=== PATIENT | female | born 1985 | race Caucasian/White ===

== ENCOUNTER 2023-05-19 11:35 | Inpatient (IN) | payer BC, SELFPAY ==
[2023-05-19] VITALS (28 sets, daily range): BP systolic 112–167; BP diastolic 59–102; PULSE 84–120; TEMP 35.9–37.1; O2SAT 98–100; BMI 31.8
[2023-05-19] MEDS: Lactated Ringers 1,000 ML 50 ML IV (12:45)
[2023-05-19] MEDS: Oxytocin 15 Units/NS 250ml 15 UNITS/250 ML IV.SOLN 2 UNITS IV (12:51)
[2023-05-19] MEDS: 0.9% Normal Saline Single 100 ML IV.SOLN. INTRA-UTER (13:06)
[2023-05-19 13:09] LABS: Absolute Lymphocyte Count 1.45 X10^3/uL (0.83-4.51); Absolute Neutrophil Count 8.8 X10^3/uL (2.0-7.7); Basophil# 0.06 X10^3/uL; Basophil% 0.5 % (0-1); Eosinophil# 0.13 X10^3/uL; Eosinophils% 1.1 % (0-5); Hematocrit 38.8 % (37-47); Hemoglobin 13.2 g/dL (12.0-15.0); Lymphocyte # 1.45 X10^3/ul (0.83-4.51); Lymphocyte % 12.8 % (19-41); Mean Corpuscular Hgb 29.6 pg (27.0-32.0); Mean Platelet Vol. 10.3 fl (6.2-12.0); Monocyte# 0.77 X10^3/uL; Monocyte% 6.8 % (0-10); NRBC Flagged by Analyzer 0 % (0-5); Neutrophil # 8.82 X10^3/uL (2.7-7.7); Neutrophil % 77.8 % (47-70); Platelet Count 205 K/mm3 (150-450); RBC Distribution Width CV 12.2 % (11.6-14.6); RBC Distribution Width SD 38.3 fl (35.1-43.9); Red Blood Count 4.46 M/mm3 (4.2-5.4); White Blood Count 11.3 K/mm3 (4.4-11.0)
--- NOTE | 2023-05-19 13:10 | HP.PCM.OB_ITS ---
HPI - General General Date of Admission: 05/19/23 Date of Service: 05/19/23 HPI Narrative AUGUSTA CAMPOS, is a 38 F who presents for induction. In the office she reported decreased FM. Maternal Data Information Final VERONICA: 05/25/23 Gestational age: 39&1 PFSH PFSH Medical History Advanced maternal age (AMA) in Fibroids Home Medications vits,calcium no.78-iron fumarate-folic acid 29 mg-1 mg tablet (Prenatabs FA) 1 tab PO DAILY 07/01/17 [History Last Taken 05/18/23] ibuprofen 400 mg tablet 800 mg (2 x 400 mg) PO Q8H PRN PRN Pain ##30 07/07/17 [R x Last Taken Unknown] Allergy/AdvReac Type Severity Reaction Status Date / Time Sulfa (Sulfonamide Allergy Rash Verified 07/04/17 22:09 Antibiotics) ascorbic acid Allergy Mild Itching Uncoded 05/19/23 12:01 Social History Smoking Status: Never smoker History 3 Elective abortions Hx Para 2 Spontaneous abortions Hx # Term Pregnancies Ectopic pregnancies Hx # Pregnancies Multiple births # of living children 2 NST FHR Rate Baby A Baseline: 150 Variability:: Moderate Accelerations:: 15 x 15 Decelerations:: None Uterine Activity:: Q2-3 min Vital Signs Vital Signs Vital Signs: 05/19/23 11:57 05/19/23 11:57 05/19/23 11:58 Pulse Rate 117 H Blood Pressure 167/102 H BP Systolic 167 BP Diastolic 102 Pulse Ox 98 05/19/23 11:58 05/19/23 12:00 05/19/23 12:00 Pulse Rate 120 H 109 H Blood Pressure 145/90 H BP Systolic 145 BP Diastolic 90 Pulse Ox 05/19/23 12:02 05/19/23 12:02 Pulse Rate 112 H Blood Pressure BP Systolic BP Diastolic Pulse Ox 100 Weight Weight: 203 lb 8.614 oz Body Mass Index (BMI) 31.8 Physical Exam Const alert, oriented x3 and no apparent distress Chest inspection of chest normal GI soft to palpation, non-tender and non-distended Inspection: gravid external exam normal Narrative: cvx - 1/20/-3, intracervical conway placed Labs Labs Labs: Blood Type O POSITIVE Antibody Screen NEGATIVE Hct 38.8 % (37-47) Hgb 13.2 g/dL (12.0-15.0) Syphilis Total Ab Pending Rhogam given: No see [facility] H&P Assessment & Plan (1) Advanced maternal age (AMA) in : COMMENT: @ 39&1 (2) Decreased movement: QUALIFIERS: Fetus number: single or unspecified fetus Trimester: third trimester Qualified Code(s): O36.8130 - Decreased movements, third trimester, not applicable or unspecified (3) Amniotic fluid index borderline low: PLAN: Plan Admit to L&D Induction of labor - on pitocin & intracervical conway placed GBS negative Pain - declines epidural at this time EFW - less than 4500g, patient with adequate pelvis
[2023-05-19 14:01] LABS: Syphilis Antibodies Non-reactive
--- NOTE | 2023-05-19 20:59 | PCM.PN.OB ---
Subjective Subjective Patient feeling more ctxs Objective Data Objective Data Vital Signs: Vital Signs Temp Pulse BP Pulse Ox 98.8 F 101 H 135/85 H 98 05/19/23 19:30 05/19/23 20:55 05/19/23 20:55 05/19/23 20:55 Weight: 203 lb 8.614 oz Body Mass Index (BMI) 31.8 Intake & Output: Intake and Output for Last 24 Hours 05/17/23 05/18/23 05/19/23 23:59 23:59 23:59 Intake Total 24.17 / 24.17 Balance 24.17 / 24.17 Lab / Micro Data 05/19/23 12:45 Labs: Laboratory Results - last 24 hr 05/19/23 12:45: WBC 11.3 H, RBC 4.46, Hgb 13.2, Hct 38.8, MCV 87.0, MCH 29.6, MCHC 34.0, RDW Std Deviation 38.3, RDW Coeff of Alissa 12.2, Plt Count 205, MPV 10.3, Immature Gran % (Auto) 1.000 H, Neut % (Auto) 77.8 H, Lymph % (Auto) 12.8 L, [place] % (Auto) 6.8, Eos % (Auto) 1.1, Baso % (Auto) 0.5, Absolute Neuts (auto) 8.8 H, Absolute Lymphs (auto) 1.45, Nucleated RBC % 0, Syphilis Total Ab Non-reactive, Blood Type O POSITIVE, Antibody Screen NEGATIVE Physical Exam Const alert, oriented x3 and no apparent distress Narrative: cvx - 4.5/80/-2 NST FHR Rate Baby A Baseline: 135 Variability:: Moderate Accelerations:: 15 x 15 Decelerations:: Variable Uterine Activity:: Q 2-3 minutes Assessment & Plan (1) Advanced maternal age (AMA) in : COMMENT: @ 39&1 PLAN: Plan AROM thin meconium fluid Continue pitocin induction
[2023-05-19] MEDS: LACTATED RINGERS 500 ML 999 ML IV (22:25)
[2023-05-19] MEDS: Lidocaine 1% (20 ml mdv) 20 ML Vial INFILT (22:52)
[2023-05-19] MEDS: Ketorolac 30 MG/ML Syringe IV (22:56)
--- NOTE | 2023-05-19 23:14 | EX.PCM.OBRPT ---
Maternal Data Information Final VERONICA: 05/25/23 Gestational age: 39&1 Vaginal Delivery Maternal Presentation Maternal Presentation: Medically Indicated Induction Type of Induction: Pitocin, [place] Bulb and Amniotomy Operative Information Date of Procedure: 05/19/23 Pre-Operative Diagnosis: (1) Advanced maternal age (2) Decreased movement Post-Operative Diagnosis: Same Surgery / Procedure Performed: Spontaneous Vaginal Delivery Type of Anesthesia: Local with 1% Lidocaine Estimated Blood Loss: 400ml Findings Description of Procedure: Patient draped when C/C/+2. She pushed well to deliver the head. head gently guided to allow delivery of anterior and posterior shoulders. No excess traction placed on head. Body delivered and 3VC clamped & cut in delayed fashion. Placenta delivered with gentle traction and good uterine tone obtained. Presentation: SPENSER Amniotic Membrane Rupture Type: Artificial Amniotic Fluid Description: Lightly stained meconium Placental Delivery Description: Expressed Placenta Disposition: [facility] Specimen(s) Removed: Placenta Cord Vessel Description: 3 Vessels Cord Entanglement: Around neck x 1, loose Nuchal Cord Compression: Without compression A Gender: Female (1 minute): 8 (5 minute): 10 Delayed Cord Clamping: Yes Post Vaginal Delivery Medications Given After Delivery: IV Pitocin and IM Pitocin Episiotomy Description: None Laceration: 1st degree (vaginal - repaired with 3-0 vicryl) Complication Complications: None
[2023-05-19] MEDS: Oxytocin 15 Units/NS 250ml 15 UNITS/250 ML IV.SOLN 83 UNITS IV (23:23)
[2023-05-20] VITALS (16 sets, daily range): BP systolic 100–118; BP diastolic 56–80; PULSE 77–111; RESP 15–16; TEMP 36.6–37.2; O2SAT 97–100
[2023-05-20] MEDS: Acetaminophen 500 MG Tablet 1000 MG PO ×4 (00:15→20:33)
[2023-05-20] MEDS: 0.9% Saline Lock 10 ML Syringe IV (02:23)
[2023-05-20] MEDS: Ibuprofen 600 MG Tablet PO ×4 (02:23→22:40)
--- NOTE | 2023-05-20 06:34 | PN.OBGYN_ITS ---
Subjective Subjective Denies complaints Objective Data Objective Data Vital Signs: Vital Signs Temp Pulse Resp BP Pulse Ox O2 Del Method 98 F 92 16 102/66 97 Room Air 05/20/23 04:30 05/20/23 04:30 05/20/23 04:30 05/20/23 04:30 05/20/23 04:30 05/20/23 04:30 Oxygen Delivery Method Room Air Weight: 203 lb 8.614 oz Body Mass Index (BMI) 31.8 Intake & Output: Intake and Output for Last 24 Hours 05/18/23 05/19/23 05/20/23 23:59 23:59 23:59 Intake Total 944.10 / 944.10 250 / 250 Output Total 400 / 400 700 / 700 Balance 544.10 / 544.10 -450 / -450 Lab / Micro Data 05/19/23 12:45 Labs: Laboratory Results - last 24 hr 05/19/23 12:45: WBC 11.3 H, RBC 4.46, Hgb 13.2, Hct 38.8, MCV 87.0, MCH 29.6, MCHC 34.0, RDW Std Deviation 38.3, RDW Coeff of Alissa 12.2, Plt Count 205, MPV 10.3, Immature Gran % (Auto) 1.000 H, Neut % (Auto) 77.8 H, Lymph % (Auto) 12.8 L, [place] % (Auto) 6.8, Eos % (Auto) 1.1, Baso % (Auto) 0.5, Absolute Neuts (auto) 8.8 H, Absolute Lymphs (auto) 1.45, Nucleated RBC % 0, Syphilis Total Ab Non- reactive, Blood Type O POSITIVE, Antibody Screen NEGATIVE Physical Exam Const alert, oriented x3 and no apparent distress HEENT normocephalic GI soft to palpation, non-tender and non-distended GI Narrative: fundus firm, mid & below umbilicus Extremity normal to inspection and no calf tenderness Assessment & Plan (1) Vaginal delivery: COMMENT: PPD#1 PLAN: Plan Routine care
[2023-05-20] MEDS: Senna/Docusate Sodium 1 Tablet PO (08:28)
[2023-05-21 01:18] VITALS: BP 109/67; PULSE 83; RESP 15; TEMP 36.2; O2SAT 96
[2023-05-21] MEDS: Acetaminophen 500 MG Tablet 1000 MG PO (02:22)
--- NOTE | 2023-05-21 07:38 | PCM.PN.OB ---
Subjective Subjective Patient seen at bedside. Ambulating and voiding without difficulty. Denies headache, dizziness, CP, or SOB. Lochia decreasing. with minimal support. Desires discharge home today. Objective Data Objective Data Vital Signs: Vital Signs Temp Pulse Resp BP Pulse Ox O2 Del Method 97.1 F L 83 15 109/67 96 Room Air 05/21/23 01:18 05/21/23 01:18 05/21/23 01:18 05/21/23 01:18 05/21/23 01:18 05/21/23 01:18 Oxygen Delivery Method Room Air Weight: 203 lb 8.614 oz Body Mass Index (BMI) 31.8 Intake & Output: Intake and Output for Last 24 Hours 05/19/23 05/20/23 05/21/23 23:59 23:59 23:59 Intake Total 944.10 / 944.10 250 / 250 Output Total 400 / 400 700 / 700 Balance 544.10 / 544.10 -450 / -450 Lab / Micro Data 05/19/23 12:45 ROS Eyes Eyes: Denies blurry vision, change in vision or spots in vision ENT HEENT: Denies dizziness or headache(s) Cardiovascular Cardiovascular: Denies abdominal pain, chest pain or dyspnea Respiratory/Chest Respiratory/Chest: Denies cough, dyspnea, shortness of breath at rest or shortness of breath with exertion Gastrointestinal Gastrointestinal: Denies abdominal pain, diarrhea or vomiting Genitourinary Genitourinary: Denies change in urinary stream, difficulty urinating or dysuria Musculoskeletal Musculoskeletal: Reports none Integumentary Integumentary: Denies rash Neurologic Neurologic: Denies dizziness, headache(s), memory loss or weakness Physical Exam Const alert and no apparent distress General Appearance: cooperative and comfortable Exam Limitations: no limitations HEENT normocephalic Eyes General Eye: normal appearance of both eyes Neck full ROM General: normal visual inspection Chest Chest: symmetrical chest wall rise Resp normal respiratory effort and normal air movement Effort and Inspection: symmetric chest movement Auscultation: clear to auscultation bilaterally Cardio regular rate and regular rhythm GI normal to inspection, nondistended, normoactive bowel sounds Back/Spine normal ROM Extremity full ROM and no calf tenderness General Extremity: normal exam except as noted Skin no rashes or lesions noted Neuro CN's II-XII intact bilaterally Psych mental status grossly normal Assessment & Plan (1) Vaginal delivery: COMMENT: PPD#1 (2) Care and examination of lactating mother: PLAN: Plan PPD 2 Routine care support D/C home with follow up in office
--- NOTE | 2023-05-21 07:39 | DCINST_ITS ---
Discharge Instructions Diet Discharge Diet: No restrictions Activity Discharge Activity: Return to Normal Activity, May Shower and May Take a Tub Bath May resume sexual activity in: 4-6 weeks Weight Bearing Status: Weight bearing as tolerated Dressing / Incision Call your doctor if you observe: Fever of 101 or Higher, Inability to urinate, Using more than 1 pad per hour, Shortness of breath, Dizziness, Swelling in the ankles, Chest pain, Calf discomfort and Uncontrolled pain Follow Up Care Please Follow Up With: Roopa Burgos CNM When: 2 weeks and 6 weeks Test Results: Test results from this visit will be discussed in further detail at your follow- up appointment, if applicable. Discharge Plan Admission Admit Date/Time: 05/19/23 11:35 Primary Reason for Your Visit: labor and delivery Attending Provider: Keri Driscoll Primary Care Provider: Care PhysicianArleen Primary Discharge Orders/Prescriptions Prescriptions: No Action Prenatabs FA 1 TABLET tablet 1 tab PO DAILY ibuprofen 400 MG tablet 800 mg PO Q8H PRN PRN (Reason: Pain) Qty: 30 0RF Hold Instructions: Ordered albuterol sulfate 90 mcg/actuation HFA aerosol inhaler INHALATION Patient Comments: Inhale 2 puffs by mouth every 6 hours as needed for wheezing . Referrals / Follow Up: Care Physician,Arleen Primary [Primary Care Provider] - Disposition Disposition (needs filled in before D/C Order can be placed): Home, Self Care
[2023-05-21 09:34] VITALS: BP 106/69; PULSE 102; RESP 16; TEMP 36.7; O2SAT 97
[2023-05-21] MEDS: Ibuprofen 600 MG Tablet PO (09:40)
[2023-05-21] MEDS: Senna/Docusate Sodium 1 Tablet PO (09:40)
== END 2023-05-21 11:15 | disposition home or self-care (01) | DRG 806 ==
PROVIDERS: Admitting Provider Obstetrics & Gynecology; Visit Provider Obstetrics & Gynecology
DX: O36.8130 Decreased fetal movements, third trimester, not applicable or unspecified (principal); Z37.0 Single live birth; O41.03X0 Oligohydramnios, third trimester, not applicable or unspecified; O69.81X0 Labor and delivery complicated by cord around neck, without compression, not applicable or unspecified; O77.0 Labor and delivery complicated by meconium in amniotic fluid; O70.0 First degree perineal laceration during delivery; Z3A.39 39 weeks gestation of pregnancy
CPT/HCPCS: 59025; 59050; 85025; 86780; 86850; 86900; 86901; 99221; J7120; A4216; G0378